=== PATIENT | male | born 1955 | race Caucasian/White ===

== ENCOUNTER 2020-11-10 08:07 | Day surgery (SDC) | payer OTHER, SELFPAY ==
[2020-11-10] VITALS (10 sets, daily range): BP systolic 125–148; BP diastolic 69–89; PULSE 53–69; RESP 10–17; TEMP 36.6–37.1; O2SAT 97–99; BMI 20.9
--- NOTE | 2020-11-10 08:43 | PM.HP.1 ---
History of Present Illness History of Present Illness Date Patient Seen: 11/10/20 Time Patient Seen: 08:43 Chief complaint: SDC Narrative: The patient is a gentleman here for a repair of bilateral inguinal hernias. Tease locally symptomatic. He also has an umbilical hernia that he does not want repaired. Patient History Medical History Depression HTN (hypertension) Surgical History (Updated 11/10/20 @ 08:44 by Rustam Hernandez MD) Hx of knee surgery Hx of shoulder surgery Hx of vasectomy Family & Social History Family History Father Heart disease Brother Heart disease Social History: household members spouse Tobacco & Substance use: Smoking Status Never smoker alcohol intake current Meds Home Medications and Allergies Home Medications Medication Instructions Recorded Confirmed Type bupropion HCl 100 mg tablet,12 hr 100 mg PO DAILY 04/14/20 09/22/20 History sustained-release cyclobenzaprine 5 mg tablet 10 mg PO BEDTIME PRN 04/14/20 09/22/20 History hydrocodone 10 mg-acetaminophen 1 tab PO BEDTIME PRN 04/14/20 09/22/20 History 325 mg tablet hydroxyzine HCl 10 mg tablet 10 mg PO BEDTIME PRN 04/14/20 09/22/20 History lisinopril 2.5 mg tablet 2.5 mg PO DAILY 04/14/20 09/22/20 History saw palmetto 160 mg capsule 320 mg PO DAILY 04/14/20 09/22/20 History sildenafil 25 mg tablet 25 mg PO DAILY PRN 04/14/20 09/22/20 History Allergies Allergy/AdvReac Type Severity Reaction Status Date / Time No Known Drug Allergies Allergy Unverified 09/22/20 15:36 Review of Systems Review of Systems ROS: Yes All systems reviewed with the patient and are negative except as otherwise documented Exam Narrative Exam Narrative: Pleasant cooperative patient no apparent distress. Lungs are clear to auscultation. No rales or rhonchi. Heart regular rate and rhythm no murmur gallop. Abdomen is soft nontender without mass. Bilateral reducible inguinal hernias. No rashes over his skin in the region. Reducible umbilical hernia. Patient is alert and oriented x3. Assessment & Plan Assessment & Plan narrative: Patient with bilateral inguinal hernias for repair. I have discussed the procedure with him. Limitations after the operation. Risks of bleeding, infection, recurrence, injury to blood supply to was testicle and nerves which could cause chronic pain or numbness. He appears to understand wishes to proceed. He has had a vasectomy.
--- NOTE | 2020-11-10 08:46 | PM.PREOP ---
Pre-operative Note COVID-19 COVID-19 status: Negative Result date/Date tested (Pos, Neg/Pending): 11/08/20 Interval Note History & Physical reviewed/Exam performed by Physician: Yes Changes to H&P: No
[2020-11-10] MEDS: LACTATED RINGERS 1,000 ML 100 ML IV ×2 (08:47→10:45)
[2020-11-10] MEDS: CEFAZOLIN 2 GM/100 ML FROZ.PIGGY IV (09:15)
--- NOTE | 2020-11-10 09:37 | SUR.OPER ---
Supine on padded OR bed, head on pillow, arms secured on padded arm boards at <90 degrees abduction, legs uncrossed, safety belt at thigh, tape over blanket over lower legs.
[2020-11-10] MEDS: BUPIVACAINE 0.5% (PF) VIAL 30 ML INJ (09:46)
--- NOTE | 2020-11-10 11:19 | P.OP_ITS ---
Operative Date/Time/Diagnoses Date of procedure: 11/10/20 Time of procedure: 11:19 Pre-op diagnosis: Bilateral inguinal hernia. Post-op diagnosis: same (Bilateral direct inguinal hernia with bilateral lipoma of the cord) Procedure & Clinicians Procedure: Repair with modified Shouldice technique bilateral Same procedure as scheduled: Yes Indications: Symptomatic hernias. Patient preferred not to have mesh used. Surgeon: Rustam Hernandez Click Yes if Unassisted: Yes Anesthesia Type: General Operative Notes Findings: Direct hernias bilateral. Lipoma of the cord bilateral. Closure Type: primary Specimen(s): none sent Prosthetic devices, grafts, tissues, transplants, or devices: None Estimated Blood Loss (mL): 5 Procedure in detail: Patient is placed supine on the operating room table underwent general LMA anesthesia. He was prepped and draped in the usual fashion. Beginning on the left side a transverse incision was made overlying the internal ring. It was carried down level the external oblique. The external oblique was opened parallel with its fibers through the external ring. Cord structures were elevated. Cremaster was opened proximally and a lipoma of the cord was identified. It was from surrounding structures and dissected to the level the deep epigastric vessels where it was suture ligated with 2-0 silk suture. Distal portion was removed. There was no indirect sac identified. The floor was examined and found to be we can. It was opened from near the internal ring to the near the pubic tubercle. Using 2 0 Prolene sutured and anchored at the pubic tubercle the suture was run on the underside of the medial floor to the cut edge of the lateral floor including the very edge of the inguinal ligament. This was run back to reform a new internal ring was snug but not tight. This same suture was then run from the cut edge of the medial floor to the tissues just above the inguinal ligament on the lateral aspect of the area worked upon. This was run back to the pubic tubercle where the suture was tied. A 2nd running layer was formed beginning at the internal ring and running the tissues of the internal oblique to the inguinal ligament down to the pubic tubercle and back suturing the tissues just above that layer. It was tied at the internal ring. The newly formed internal ring was snug but not tight. The cremaster was closed with an interrupted 3-0 Vicryl. The electrotyper helper al oblique was closed with a 3-0 Vicryl running suture. The subQ was closed with interrupted 3-0 Vicryl and the skin closed with a running 4-0 Vicryl subcuticular stitch. Attention was turned to the opposite side. There was a nearly identical operation performed on the right. Findings were the same as on the left. The only difference in the repair was that I did not feel it was necessary to do these 3rd and 4th running suture line that is from the internal ring to the pubic tubercle and back. The repair appeared to be adequate without it. Closure was in an identical fashion as the opposite side.. Local anesthetic was infiltrated bilaterally prior to flying Mastisol and Steri- Strips. Complications: none Post-operative Condition: stable Disposition: PACU
[2020-11-10] MEDS: fentaNYL 100 MCG/2 ML INJ IV ×2 (11:25→11:37)
[2020-11-10] MEDS: OXYCODONE/ACETAMINOPHEN 5/325 TABLET 1 TAB PO ×2 (11:29→12:00)
[2020-11-10] MEDS: KETOROLAC 30 MG/ML VIAL IV (11:53)
--- NOTE | 2020-11-10 12:31 | SUR.PHASEII ---
Assumed care from VICKIE Rogers. Bed low, locked and call martinez in hand.
--- NOTE | 2020-11-10 13:13 | SUR.PHASEII ---
Pt ready to go, called, pt assisted to BR to void, up with SBA, steady. Voided in BR. Pt left when ready and left in stable condition, dressings to both groins c/d/i.
== END 2020-11-10 13:00 | disposition home or self-care (01) ==
PROVIDERS: Referring Provider Specialist; Visit Provider Specialist
PROC: (CPT 49505; principal; 2020-11-10 09:15)
DX: K40.20 Bilateral inguinal hernia, without obstruction or gangrene, not specified as recurrent (principal); I10 Essential (primary) hypertension; F32.9 Major depressive disorder, single episode, unspecified; D17.6 Benign lipomatous neoplasm of spermatic cord
CPT/HCPCS: 49505; J0690; J1100; J1885; J2405; J2704; J3010

== ENCOUNTER → 2022-09-27 07:55 | Outpatient (CLI) | payer MEDICARE, OTHER, SELFPAY ==
--- NOTE | 2022-09-28 13:27 | DI.NM.S_ITS ---
DATE OF SERVICE: 09/27/2022 PROCEDURE: Exercise stress test INDICATIONS: Exertional shortness of breath. CARDIAC STRESS: Patient underwent exercise stress test under the supervision of an attending staff. He walked on Rei protocol for 9 minutes and 09 seconds, achieved maximum heart rate of 142, which was 92 percent of target heart rate. Resting blood pressure 118/80 mmHg. Peak blood pressure 160/88 mmHg. Achieved 10.1 METs of workload. BEL -18 percent. Baseline rhythm was sinus. During stress, patient has artifacts. However, in immediate recovery, no convincing ischemic changes seen. No significant arrhythmias. The patient felt fatigue. No chest pain or other cardiac symptoms. CONCLUSION: Exercise stress test is negative for inducible ischemia. Normal hemodynamic response. Good exercise tolerance. Functional aerobic impairment - 18 percent. No significant arrhythmias seen. No anginal symptoms. Overall low- risk study. TyreeDwightRen - REINALDO/edmund/JOSE ARMANDO doc#: [id number]/job#: [id number] dd: 09/27/2022 17:34:00 dt: 09/27/2022 18:00:00 DICTATING /COPIES TO: Lakisha Garcia MD COPIES MNE: DARSHAN;
== END ==
PROVIDERS: Referring Provider Family Medicine; Visit Provider Family Medicine
DX: R06.09 Other forms of dyspnea (principal); R06.02 Shortness of breath; R53.83 Other fatigue
CPT/HCPCS: 93017

== ENCOUNTER 2025-05-07 05:41 | Emergency (ER) | payer MEDICARE, OTHER, SELFPAY ==
[2025-05-07] VITALS (16 sets, daily range): BP systolic 132–171; BP diastolic 72–86; PULSE 53–86; RESP 15–17; TEMP 36.8; O2SAT 97–99; BMI 20.9
--- NOTE | 2025-05-07 06:20 | ED.BACK ---
HPI - Back Pain/Injury <Maria L Moeller DO - Last Filed: 05/10/25 06:58> General Chief Complaint: Back Pain/Injury Stated Complaint: Back pain Time Seen by Provider: 05/07/25 06:12 Source: patient History of Present Illness HPI Narrative: Patient is a 69-year-old male history of depression and hypertension presenting today with epigastric pain and back pain. He reports he is currently camping but sleeping on a nice comfortable blow mattress. Woke up at 2:00 a.m. with kind of some thoracic back pain and epigastric pain he says it was a little different than his normal back pain. He rolled over went back to sleep and it happened again at 4:00 a.m.. He was quite worried because multiple family members have had heart attacks. He does not have any known coronary artery disease. He denies any chest pain or shortness of breath. No significant nausea. He is having some dry mouth now. Pain in his back is not really reproducible. He appears comfortable Related Data Home Medications ?Medication ?Instructions ?Recorded ?Confirmed bupropion HCl 100 mg tablet,12 hr 100 mg PO DAILY 04/14/20 05/07/25 sustained-release (Wellbutrin SR) cyclobenzaprine 5 mg tablet 10 mg PO BEDTIME PRN Muscle Spasm 04/14/20 05/07/25 hydroxyzine HCl 10 mg tablet 10 mg PO BEDTIME PRN Pain (Scale 04/14/20 05/07/25 Score 1-3) lisinopril 2.5 mg tablet 2.5 mg PO DAILY 04/14/20 05/07/25 hydrocodone 10 mg-acetaminophen 1 tab PO Q6H PRN pain 05/07/25 05/07/25 325 mg tablet Previous Rx's ?Medication ?Instructions ?Recorded oxycodone 5 mg tablet See Rx Instructions .Route 11/10/20 .COMPLEX PRN pain #20 tabs Allergies Allergy/AdvReac Type Severity Reaction Status Date / Time No Known Drug Allergies Allergy Unverified 05/07/25 05:46 Patient History <Maria L Moeller DO - Last Filed: 05/10/25 06:58> Medical History Depression HTN (hypertension) Surgical History Hx of knee surgery Hx of shoulder surgery Hx of vasectomy Family History Father Heart disease Brother Heart disease Social History marital status: household members: spouse occupational status: employed Smoking Status: Former smoker alcohol intake: current substance use type: does not use Smoking Status: Former smoker alcohol intake frequency: a few times a month Alcohol type: beer and wine Exam <Maria L Moeller DO - Last Filed: 05/10/25 06:58> Initial Vital Signs Initial Vital Signs: Vital Signs Temperature 98.3 F 05/07/25 05:48 Pulse Rate 70 05/07/25 05:48 Respiratory Rate 16 05/07/25 05:48 Blood Pressure 159/83 H 05/07/25 05:48 Pulse Oximetry 97 05/07/25 05:48 Oxygen Delivery Method Room Air 05/07/25 05:48 GENERAL: Well-appearing, well-nourished and in no acute distress. HEENT: Head atraumatic,EOMI, pupils reactive, face symmetric, moist mucous membranes CARDIOVASCULAR: Regular rate and rhythm without murmurs, rubs or gallops. RESPIRATORY: Breath sounds equal bilaterally, no wheezes rales or rhonchi. ABDOMEN: Soft, nontender. Normoactive bowel sounds all 4 quadrants. No guarding or rebound. BACK: No vertebral tenderness no step-offs EXTREMITIES: Normal range of motion, no clubbing or edema. Neurovascularly intact NEUROLOGICAL: Alert and oriented x4.Normal gait and speech. Cranial nerves II through XII grossly intact. SKIN: Warm, dry, no laceration, no petechiae, no rashes or lesions. <Kevin Goncalves MD - Last Filed: 05/08/25 07:01> Initial Vital Signs Initial Vital Signs: Vital Signs Temperature 98.3 F 05/07/25 05:48 Pulse Rate 70 05/07/25 05:48 Respiratory Rate 16 05/07/25 05:48 Blood Pressure 159/83 H 05/07/25 05:48 Pulse Oximetry 97 05/07/25 05:48 Oxygen Delivery Method Room Air 05/07/25 05:48 Course <Maria L Moeller DO - Last Filed: 05/10/25 06:58> Orders Ordered: Discontinued Medications Acetaminophen (Acetaminophen 325 Mg Tablet) 650 mg PO NOW ONE Stop: 05/07/25 11:52 Last Admin: 05/07/25 11:58 Dose: 650 mg Documented By: ALEXANDR Aspirin (Aspirin 81 Mg Chew Tab) 324 mg PO NOW ONE Stop: 05/07/25 06:31 Last Admin: 05/07/25 06:43 Dose: 324 mg Documented By: JUNE Sodium Chloride (Normal Saline 0.9%) 500 mls @ 1,000 mls/hr IV BOLUS ONE Stop: 05/07/25 08:24 Last Infusion: 05/07/25 10:24 Dose: Infused Documented By: Admin: 05/07/25 07:59 Dose: 1,000 mls/hr Documented By: NETTA Vital Signs Vital signs: Vital Signs - 8 hr 05/07/25 05:48 05/07/25 06:58 05/07/25 06:59 Temperature 98.3 F Pulse Rate 70 58 L 57 L Respiratory Rate 16 16 Blood Pressure 159/83 H 171/84 H Pulse Oximetry 97 99 98 Oxygen Delivery Method Room Air Room Air 05/07/25 07:00 05/07/25 07:00 05/07/25 07:30 Temperature Pulse Rate 58 L Respiratory Rate Blood Pressure 161/79 H 132/74 Pulse Oximetry 99 Oxygen Delivery Method 05/07/25 07:30 05/07/25 08:00 05/07/25 08:30 Temperature Pulse Rate 53 L 68 74 Respiratory Rate Blood Pressure Pulse Oximetry 98 98 98 Oxygen Delivery Method 05/07/25 09:00 05/07/25 09:18 05/07/25 09:30 Temperature Pulse Rate 75 65 59 L Respiratory Rate 17 Blood Pressure Pulse Oximetry 98 97 97 Oxygen Delivery Method 05/07/25 10:00 05/07/25 10:21 05/07/25 10:21 Temperature Pulse Rate 74 76 Respiratory Rate Blood Pressure 155/86 H Pulse Oximetry 99 Oxygen Delivery Method 05/07/25 10:30 05/07/25 11:00 05/07/25 11:30 Temperature Pulse Rate 68 71 86 Respiratory Rate Blood Pressure 165/84 H Pulse Oximetry 98 97 97 Oxygen Delivery Method <Kevin Goncalves MD - Last Filed: 05/08/25 07:01> Orders Ordered: Discontinued Medications Acetaminophen (Acetaminophen 325 Mg Tablet) 650 mg PO NOW ONE Stop: 05/07/25 11:52 Last Admin: 05/07/25 11:58 Dose: 650 mg Documented By: ALEXANDR Aspirin (Aspirin 81 Mg Chew Tab) 324 mg PO NOW ONE Stop: 05/07/25 06:31 Last Admin: 05/07/25 06:43 Dose: 324 mg Documented By: JUNE Sodium Chloride (Normal Saline 0.9%) 500 mls @ 1,000 mls/hr IV BOLUS ONE Stop: 05/07/25 08:24 Last Infusion: 05/07/25 10:24 Dose: Infused Documented By: Admin: 05/07/25 07:59 Dose: 1,000 mls/hr Documented By: NETTA Vital Signs Vital signs: Vital Signs - 8 hr 05/07/25 05:48 05/07/25 06:58 05/07/25 06:59 Temperature 98.3 F Pulse Rate 70 58 L 57 L Respiratory Rate 16 16 Blood Pressure 159/83 H 171/84 H Pulse Oximetry 97 99 98 Oxygen Delivery Method Room Air Room Air 05/07/25 07:00 05/07/25 07:00 05/07/25 07:30 Temperature Pulse Rate 58 L Respiratory Rate Blood Pressure 161/79 H 132/74 Pulse Oximetry 99 Oxygen Delivery Method 05/07/25 07:30 05/07/25 08:00 05/07/25 08:30 Temperature Pulse Rate 53 L 68 74 Respiratory Rate Blood Pressure Pulse Oximetry 98 98 98 Oxygen Delivery Method 05/07/25 09:00 05/07/25 09:18 05/07/25 09:30 Temperature Pulse Rate 75 65 59 L Respiratory Rate 17 Blood Pressure Pulse Oximetry 98 97 97 Oxygen Delivery Method 05/07/25 10:00 05/07/25 10:21 05/07/25 10:21 Temperature Pulse Rate 74 76 Respiratory Rate Blood Pressure 155/86 H Pulse Oximetry 99 Oxygen Delivery Method 05/07/25 10:30 05/07/25 11:00 05/07/25 11:30 Temperature Pulse Rate 68 71 86 Respiratory Rate Blood Pressure 165/84 H Pulse Oximetry 98 97 97 Oxygen Delivery Method MDM - Back Pain/Injury <Maria L Moeller, - Last Filed: 05/10/25 06:58> Lab Data 05/07/25 06:41 05/07/25 06:41 Labs: Lab Results 05/07/25 05/07/25 Range/Units 06:41 11:40 WBC 5.8 (4.5-11.0) X10^3/uL RBC 4.68 (4.5-5.9) X10^6/uL Hgb 13.5 (13.5-17.5) g/dL Hct 39.7 L (41-53) % MCV 84.9 (80-100) fL MCH 28.9 (26-34) PG MCHC 34.0 (30-36) % RDW 13.0 (11.6-14.8) % Plt Count 166 (150-400) X10^3/uL Neut % (Auto) 57.5 (50-75) % Lymph % (Auto) 24.0 L (25-40) % [place] % (Auto) 10.5 (3-14) % Eos % (Auto) 7.7 H (2-4) % Baso % (Auto) 0.3 (0-2) % Neut # (Auto) 3300 (6259-4166) /uL Lymph # (Auto) 1400 (1118-1224) /uL [place] # (Auto) 600 (0-900) /uL Eos # (Auto) 400 (0-450) /uL Baso # (Auto) 0 (0-100) /uL Sodium 138 (137-145) mmol/L Potassium 4.0 (3.4-5.1) mmol/L Chloride 104 (98-107) mmol/L Carbon Dioxide 26 (22-32) mmol/L BUN 13 (9-20) mg/dL Creatinine 0.76 (0.66-1.25) mg/dL Estimated GFR > 60 (>60) mL/min BUN/Creatinine Ratio 17.1 (6-22) Glucose 107 H (70-99) mg/dL Calcium 9.1 (8.4-10.2) mg/dL Total Bilirubin 0.4 (0.2-1.3) mg/dL AST 31 (17-59) IU/L ALT 23 (<50) IU/L Alkaline Phosphatase 35 L (38-126) U/L Total Creatine Kinase 88 77 (55-170) U/L Troponin I < 0.012 < 0.012 (0.01-0.034) ng/mL Total Protein 7.8 (6.3-8.2) g/dL Albumin 4.8 (3.5-5.0) g/dL Globulin 3.0 (1.7-4.1) g/dL Albumin/Globulin Ratio 1.6 (1.0-2.8) Lipase 28 (23-300) U/L Urine Dip Bedside Urine Glucose Negative Bedside Urine Bilirubin - Negative Bedside Urine Ketone - Negative Urine Specific [place] 1.010 Bedside Urine Occult Blood - Negative Bedside Urine pH 6 Bedside Urine Protein - Negative Bedside Urine Urobilinogen - Negative Bedside Urine Nitrite - Negative Bedside Urine Leukocytes - Negative Esterase ECG Data Attestation: I personally reviewed and interpreted this ECG as follows: Prior ECG tracings: not available for review Interpretation: Normal sinus rhythm rate 59 NV interval 170 QRS 92 QTC 3 97 T-wave inversion noted in lead 2 MDM Narrative Medical decision making narrative: [facility] CC: Back pain Complicating co-morbidities: Hypertension depression Data collected from: [ ] Medical records reviewed: [ ] Differential considered: Acute coronary syndrome, dissection, musculoskeletal pain Exam documented above, pertinent findings include: Alert well-appearing 61-year-old male mild epigastric pain no reproducible back pain Lab Test results independently reviewed as above. Pertinent findings: CBC no leukocytosis no anemia CMP and troponin pending Independently reviewed EKG as above Sinus rhythm Imaging studies independently reviewed: Consultations: [ ] Treatments: [ ] Re-evaluations: [ ] Discussion: Patient is 69-year-old male presenting today with some epigastric and back pain. He was camping but reports it was a blowup mattress not his normal back pain and he typically does not have any kind epigastric pain. Multiple family members have had prior MIs but he has no known coronary disease. He is chest pain-free now appears comfortable. Blood work still pending EKGs does not show STEMI. Signed out toDr. Goncalves <Kevin Goncalves MD - Last Filed: 05/08/25 07:01> Medical Records Medical records narrative: [address] [address] Nuclear Medicine Report Signed Patient: Ren Clements MR#: [id number] : 1955 Acct:[id number] Age/Sex: 67 / M Date of Service: 09/27/22 Loc: [facility] Accession Number: [id number] Procedure: Exercise treadmill NON NUC Ordering Provider: Reese Rahman D.O. DATE OF SERVICE: 09/27/2022 PROCEDURE: Exercise stress test INDICATIONS: Exertional shortness of breath. CARDIAC STRESS: Patient underwent exercise stress test under the supervision of an attending staff. He walked on Rei protocol for 9 minutes and 09 seconds, achieved maximum heart rate of 142, which was 92 percent of target heart rate. Resting blood pressure 118/80 mmHg. Peak blood pressure 160/88 mmHg. Achieved 10.1 METs of workload. BEL -18 percent. Baseline rhythm was sinus. During stress, patient has artifacts. However, in immediate recovery, no convincing ischemic changes seen. No significant arrhythmias. The patient felt fatigue. No chest pain or other cardiac symptoms. CONCLUSION: Exercise stress test is negative for inducible ischemia. Normal hemodynamic response. Good exercise tolerance. Functional aerobic impairment - 18 percent. No significant arrhythmias seen. No anginal symptoms. Overall low- risk study. Ren Clements - [employer]/edmund/JOSE ARMANDO doc#: [id number]/job#: [id number] dd: 09/27/2022 17:34:00 dt: 09/27/2022 18:00:00 DICTATING MD/COPIES TO: Lakisha Garcia MD COPIES MNE: DARSHAN; Lab Data Labs: Lab Results 05/07/25 05/07/25 Range/Units 06:41 11:40 WBC 5.8 (4.5-11.0) X10^3/uL RBC 4.68 (4.5-5.9) X10^6/uL Hgb 13.5 (13.5-17.5) g/dL Hct 39.7 L (41-53) % MCV 84.9 (80-100) fL MCH 28.9 (26-34) PG MCHC 34.0 (30-36) % RDW 13.0 (11.6-14.8) % Plt Count 166 (150-400) X10^3/uL Neut % (Auto) 57.5 (50-75) % Lymph % (Auto) 24.0 L (25-40) % [place] % (Auto) 10.5 (3-14) % Eos % (Auto) 7.7 H (2-4) % Baso % (Auto) 0.3 (0-2) % Neut # (Auto) 3300 (8984-4459) /uL Lymph # (Auto) 1400 (2055-3708) /uL [place] # (Auto) 600 (0-900) /uL Eos # (Auto) 400 (0-450) /uL Baso # (Auto) 0 (0-100) /uL Sodium 138 (137-145) mmol/L Potassium 4.0 (3.4-5.1) mmol/L Chloride 104 (98-107) mmol/L Carbon Dioxide 26 (22-32) mmol/L BUN 13 (9-20) mg/dL Creatinine 0.76 (0.66-1.25) mg/dL Estimated GFR > 60 (>60) mL/min BUN/Creatinine Ratio 17.1 (6-22) Glucose 107 H (70-99) mg/dL Calcium 9.1 (8.4-10.2) mg/dL Total Bilirubin 0.4 (0.2-1.3) mg/dL AST 31 (17-59) IU/L ALT 23 (<50) IU/L Alkaline Phosphatase 35 L (38-126) U/L Total Creatine Kinase 88 77 (55-170) U/L Troponin I < 0.012 < 0.012 (0.01-0.034) ng/mL Total Protein 7.8 (6.3-8.2) g/dL Albumin 4.8 (3.5-5.0) g/dL Globulin 3.0 (1.7-4.1) g/dL Albumin/Globulin Ratio 1.6 (1.0-2.8) Lipase 28 (23-300) U/L Urine Dip Bedside Urine Glucose Negative Bedside Urine Bilirubin - Negative Bedside Urine Ketone - Negative Urine Specific [place] 1.010 Bedside Urine Occult Blood - Negative Bedside Urine pH 6 Bedside Urine Protein - Negative Bedside Urine Urobilinogen - Negative Bedside Urine Nitrite - Negative Bedside Urine Leukocytes - Negative Esterase Imaging Data Chest x-ray: Radiologist's Impression: [address] [address] XRay Report Signed Patient: Ren Clements MR#: [id number] : 1955 Acct:[id number] Age/Sex: 69 / M Date of Service: 05/07/25 Loc: ED Accession Number: [id number] Procedure: XR chest 1V Ordering Provider: Maria L Moeller D.O. PROCEDURE: XR CHEST 1V INDICATIONS: chest pain TECHNIQUE: One view of the chest was acquired. COMPARISON: None. FINDINGS: Surgical changes and devices: None. Lungs and pleura: Lungs are clear. No pleural effusions or pneumothorax. Mediastinum: Mediastinal contours appear normal. Heart size is normal. Bones and chest wall: No suspicious bony lesions. Overlying soft tissues appear unremarkable. IMPRESSION: No acute cardiopulmonary abnormality is seen. Dictated by: Jose Hernandez M.D. on 05/07/2025 at 9:19 Approved by: Jose Hernandez M.D. on 05/07/2025 at 9:20 CT angio chest abdomen and pelvis: Radiologist's Impression: [place] [address] CT Scan Report Signed Patient: Ren Clements MR#: [id number] : 1955 Acct:[id number] Age/Sex: 69 / M Date of Service: 05/07/25 Loc: ED Accession Number: [id number] Procedure: CT angio chest abdomen pelvis Ordering Provider: Kevin Goncalves MD PROCEDURE: CT ANGIO CHEST ABDOMEN PELVIS INDICATIONS: Chest pain back pain/rule out dissection TECHNIQUE: Precontrast 5 mm thick sections acquired from the lung apices to the iliac crests. After the administration of intravenous contrast, 2.5 mm thick sections again acquired from the lung apices to the iliac crests. Maximum intensity projection (MIP) oblique sagittal and coronal reformats were then acquired. For radiation dose reduction, the following was used: automated exposure control. COMPARISON: None. FINDINGS: Image quality: Diagnostic. AORTA: Thoracic aorta is normal caliber. At the level of the ROLY there is mild aneurysmal dilatation of the infrarenal abdominal aorta, measuring 3.0 x 3.2 cm. No acute aortic syndrome. Pulmonary tree: Normal caliber vessels. No acute pulmonary emboli. CHEST: Lower Neck: No enlarged lymph nodes. Thyroid: No thyroid nodules which require sonographic evaluation. Axillae: No enlarged lymph nodes. Chest Wall: Unremarkable. Lungs and Pleura: No pneumothorax or pleural effusions. No consolidation or suspicious nodules. Heart: Heart size is normal. Severe coronary artery calcifications. No pericardial effusion. Thoracic Vessels: Pulmonary arteries demonstrate normal size. Mediastinum and Rebeca: No enlarged lymph nodes. Esophagus: No wall thickening. No hiatal hernia. ABDOMEN: Liver: No solid mass. Gallbladder: Possibly very contracted or absent. Biliary ducts: No biliary dilation. Pancreas: No ductal dilation. Spleen: Size is within normal limits. Adrenal Glands: No adrenal nodules. Kidneys and Ureters: No hydronephrosis. No solid mass. No complex renal cystic lesion which requires follow up. Stomach and Bowel: Normal colonic caliber, without significant wall thickening. Large fecal load. Mild diverticulosis. Normal appendix. Peritoneum: No abnormal intraperitoneal fluid. No free air. Ventral Wall: No hernia. Abdominal Nodes: No retroperitoneal or mesenteric adenopathy by size criteria. Vessels: Inferior vena cava is normal in size. PELVIS: Pelvic Organs: Posterior prostate implant seeds.. Bladder: Unremarkable. Pelvic Nodes: No enlarged lymph nodes. Miscellaneous: No inguinal hernias are seen. Bones: Diffuse lumbar degenerative change. IMPRESSION: 1. No acute aortic syndrome. 2. Very mild aneurysmal dilatation of the infrarenal abdominal aorta. 3. No acute process in the chest, abdomen, and pelvis. 4. Severe coronary artery calcifications. Dictated by: Bentley Easton M.D. on 05/07/2025 at 9:08 Approved by: Bentley Easton M.D. on 05/07/2025 at 9:18 MDM Narrative Medical decision making narrative: MDM CC: Back pain Complicating co-morbidities: Hypertension depression Data collected from: Patient Medical records reviewed: Exercise stress test September 27, 2022 at this hospital Differential considered: Acute coronary syndrome, dissection, musculoskeletal pain Exam documented above, pertinent findings include: Alert well-appearing 61-year-old male mild epigastric pain no reproducible back pain Lab Test results independently reviewed as above. Pertinent findings: Troponin less than 0.012 x2 CBC no leukocytosis no anemia Independently reviewed EKG as above Sinus rhythm Imaging studies independently reviewed: Chest x-ray no acute finding, CT angio chest abdomen pelvis coronary artery calcifications otherwise no acute finding Consultations: 9:[address] Bey, hospitalist, who will admit patient, last stress test was exercise stress test, will need nuclear stress test. Re-evaluations: 10:00 a.m.. Updated patient results and he does agree for admission for stress test and observation 1:50 p.m.. Patient does understand need for transfer as we do not have stress test capability until next week. He does agree to go to [facility]. 10:[address] Bey called back. We do not have stress test capability until next week. We will need to transfer. 11:23 a.m.. I spoke with [facility], she will accept patient Discussion: Patient is 69-year-old male presenting today with some epigastric and back pain. He was camping but reports it was a blowup mattress not his normal back pain and he typically does not have any kind epigastric pain. Multiple family members have had prior MIs but he has no known coronary disease. He is chest pain-free now appears comfortable. Blood work still pending EKGs does not show STEMI. Signed out toDr. Goncalves May 07, 2025 at 7:00 a.m..: Sacha: ?sign out from Dr Moeller patient here for epigastric and back pain. No chest pain. Laboratory studies and x-ray imaging are pending. X-ray so far looks reassuring. Laboratory studies reassuring at this time 7:55 a.m.. Spoke with patient results so far. He denies any pain at this time. There is strong family history of coronary disease with early deaths. He states last stress test was done here but unsure what year. According to records September 27, 2022 had exercise stress test which was reassuring. Discharge Plan Departure Patient Disposition: [facility] Clinical Impression: Atypical chest pain Prescriptions: No Action bupropion HCl [Wellbutrin SR] 100 mg tablet sustained-release 12 hr 100 mg PO DAILY cyclobenzaprine 5 mg tablet 10 mg PO BEDTIME PRN (Reason: Muscle Spasm) hydroxyzine HCl 10 mg tablet 10 mg PO BEDTIME PRN (Reason: Pain (Scale Score 1-3)) lisinopril 2.5 mg tablet 2.5 mg PO DAILY oxycodone 5 mg tablet See Rx Instructions .ROUTE .COMPLEX PRN (Reason: pain) Qty: 20 0RF Rx Instructions: Take 1 or 2 pills every 4-6 hours if needed for pain. May constipate. hydrocodone-acetaminophen 10-325 mg tablet 1 tab PO Q6H PRN (Reason: pain)
--- NOTE | 2025-05-07 06:30 | DI.RAD.S_ITS ---
PROCEDURE: XR CHEST 1V INDICATIONS: chest pain TECHNIQUE: One view of the chest was acquired. COMPARISON: None. FINDINGS: Surgical changes and devices: None. Lungs and pleura: Lungs are clear. No pleural effusions or pneumothorax. Mediastinum: Mediastinal contours appear normal. Heart size is normal. Bones and chest wall: No suspicious bony lesions. Overlying soft tissues appear unremarkable. IMPRESSION: No acute cardiopulmonary abnormality is seen. Dictated by: Jose Hernandez M.D. on 05/07/2025 at 9:19 Approved by: Jose Hernandez M.D. on 05/07/2025 at 9:20
--- NOTE | 2025-05-07 06:30 | EKG_ITS ---
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
[2025-05-07] MEDS: ASPIRIN 81 MG CHEW TAB 324 MG PO (06:43)
[2025-05-07 06:46] LABS: Add Manual Diff / Slide Review NO; Hematocrit 39.7 % (41-53); Hemoglobin 13.5 g/dL (13.5-17.5); Lymphocytes Absolute Auto 1400 /uL (1100-4500); Mean Corpuscular HGB Conc 34.0 % (30-36); Mean Corpuscular Hemoglobin 28.9 PG (26-34); Mean Corpuscular Volume 84.9 fL (80-100); Platelet Count 166 X10^3/uL (150-400)
[2025-05-07 06:58] LABS: Alanine Aminotransferase 23 IU/L (<50); Albumin 4.8 g/dL (3.5-5.0); Albumin Globulin Ratio 1.6 (1.0-2.8); Alkaline Phosphatase 35 U/L (38-126); Blood Urea Nitrogen 13 mg/dL (9-20); Calcium 9.1 mg/dL (8.4-10.2); Carbon Dioxide 26 mmol/L (22-32); Chloride 104 mmol/L (98-107); Creatine Kinase 88 U/L (55-170); Estimated Glomerular Filt Rate > 60 mL/min (>60); Globulin 3.0 g/dL (1.7-4.1); Glucose 107 mg/dL (70-99); HEMOLYSIS 15 (0-50); Lipase 28 U/L (23-300); Potassium 4.0 mmol/L (3.4-5.1); Sodium 138 mmol/L (137-145); Total Protein 7.8 g/dL (6.3-8.2)
[2025-05-07 07:10] LABS: Troponin I < 0.012 ng/mL (0.01-0.034)
--- NOTE | 2025-05-07 07:53 | DI.CT.S_ITS ---
PROCEDURE: CT ANGIO CHEST ABDOMEN PELVIS INDICATIONS: Chest pain back pain/rule out dissection TECHNIQUE: Precontrast 5 mm thick sections acquired from the lung apices to the iliac crests. After the administration of intravenous contrast, 2.5 mm thick sections again acquired from the lung apices to the iliac crests. Maximum intensity projection (MIP) oblique sagittal and coronal reformats were then acquired. For radiation dose reduction, the following was used: automated exposure control. COMPARISON: None. FINDINGS: Image quality: Diagnostic. AORTA: Thoracic aorta is normal caliber. At the level of the ROLY there is mild aneurysmal dilatation of the infrarenal abdominal aorta, measuring 3.0 x 3.2 cm. No acute aortic syndrome. Pulmonary tree: Normal caliber vessels. No acute pulmonary emboli. CHEST: Lower Neck: No enlarged lymph nodes. Thyroid: No thyroid nodules which require sonographic evaluation. Axillae: No enlarged lymph nodes. Chest Wall: Unremarkable. Lungs and Pleura: No pneumothorax or pleural effusions. No consolidation or suspicious nodules. Heart: Heart size is normal. Severe coronary artery calcifications. No pericardial effusion. Thoracic Vessels: Pulmonary arteries demonstrate normal size. Mediastinum and Rebeca: No enlarged lymph nodes. Esophagus: No wall thickening. No hiatal hernia. ABDOMEN: Liver: No solid mass. Gallbladder: Possibly very contracted or absent. Biliary ducts: No biliary dilation. Pancreas: No ductal dilation. Spleen: Size is within normal limits. Adrenal Glands: No adrenal nodules. Kidneys and Ureters: No hydronephrosis. No solid mass. No complex renal cystic lesion which requires follow up. Stomach and Bowel: Normal colonic caliber, without significant wall thickening. Large fecal load. Mild diverticulosis. Normal appendix. Peritoneum: No abnormal intraperitoneal fluid. No free air. Ventral Wall: No hernia. Abdominal Nodes: No retroperitoneal or mesenteric adenopathy by size criteria. Vessels: Inferior vena cava is normal in size. PELVIS: Pelvic Organs: Posterior prostate implant seeds.. Bladder: Unremarkable. Pelvic Nodes: No enlarged lymph nodes. Miscellaneous: No inguinal hernias are seen. Bones: Diffuse lumbar degenerative change. IMPRESSION: 1. No acute aortic syndrome. 2. Very mild aneurysmal dilatation of the infrarenal abdominal aorta. 3. No acute process in the chest, abdomen, and pelvis. 4. Severe coronary artery calcifications. Dictated by: Bentley Easton M.D. on 05/07/2025 at 9:08 Approved by: Bentley Easton M.D. on 05/07/2025 at 9:18
[2025-05-07] MEDS: SODIUM CHLORIDE 0.9% 500 ML 1000 ML IV (07:59)
[2025-05-07] MEDS: ACETAMINOPHEN 325 MG TABLET 650 MG PO (11:58)
[2025-05-07 12:10] LABS: Creatine Kinase 77 U/L (55-170)
[2025-05-07 12:23] LABS: Troponin I < 0.012 ng/mL (0.01-0.034)
--- NOTE | 2025-05-07 14:35 | PC.NURSE ---
Report given/care transferred to [facility] transport nurse Haile
== END 2025-05-07 14:48 | disposition short-term general hospital (02) ==
LOC: ED 08:56 → AC 10:49 → ED 11:23
PROVIDERS: Emergency Medicine; Emergency Provider Emergency Medicine; Referring Provider Emergency Medicine
DX: R07.89 Other chest pain (principal); M54.9 Dorsalgia, unspecified; Z82.49 Family history of ischemic heart disease and other diseases of the circulatory system
CPT/HCPCS: 36415; 71045; 71275; 74174; 80053; 81003; 82550; 83690; 84484; 85025; 93005; 93010; 96360; 96361; 99284; Q9967

== ENCOUNTER 2025-08-11 10:16 | Day surgery (SDC) | payer MEDICARE, OTHER, SELFPAY ==
[2025-08-03 08:16] VITALS: BMI 22.3
[2025-08-11] VITALS (7 sets, daily range): BP systolic 130–159; BP diastolic 51–82; PULSE 55–62; RESP 15–20; TEMP 36.3–36.6; O2SAT 94–98
[2025-08-11] MEDS: LACTATED RINGERS 1,000 ML 42 ML IV ×2 (11:40→16:17)
--- NOTE | 2025-08-11 13:14 | PM.PREOP ---
Pre-operative Note COVID-19 COVID-19 status: Not tested Interval Note History & Physical reviewed/Exam performed by Physician: Yes Changes to H&P: No ASA Class (for procedural sedation): II
--- NOTE | 2025-08-11 13:52 | SUR.OPER ---
Head supported on pillow, face protected with [face plate/foam per anesthesia preference]. Arms padded and tucked bilaterally. Safety strap across thighs, tape over blanket over lower legs, feet flat on padded foot board. Jenifer; positioning approved by provider
--- NOTE | 2025-08-11 15:06 | PM.OP.1 ---
Operative Date/Time/Diagnoses Date of procedure: 08/11/25 Time of procedure: 15:06 Pre-op diagnosis: Symptomatic cholelithiasis Post-op diagnosis: same Procedure & Clinicians Procedure: Robotic cholecystectomy Same procedure(s) as scheduled: Yes Surgeon: Leon Rain Assisted?: Yes Help Desk Support Specialist: Vincent Johnson Anesthesia Type: General Operative Notes Findings: . Applied: none Estimated Blood Loss (mL): 5 Procedure in detail: The patient was given preoperative antibiotics. The patient was brought to the operating room, placed on the table in the supine position. General endotracheal anesthesia was induced. Both arms were tucked. The abdomen was prepped and draped. A time-out was performed. A cut down was performed at the infraumbilical fold. The umbilical stalk was grasped with a Franco clamp to elevate the abdominal wall. The fascia was scored with cautery and the peritoneum was pierced with a Peon clamp. The 12 mm port was placed and the abdomen was insufflated to 15 mmHg. The endoscope was inserted. There was no evidence of any injury from the entry. Next, two 8 mm ports were placed in the left abdomen and one in the right abdomen under direct vision. The patient was then positioned in 15? of reverse Trendelenburg and the table was tilted slightly to the left. The robot was brought in from the patient's left side and docked. A fenestrated bipolar was placed through arm 1, the monopolar scissors through arm 3 and the ProGrasp through arm 4. The gallbladder was grasped at the dome with the ProGrasp and retracted cephalad. There were some adhesions to the serosa of the gallbladder which were carefully dissected with monopolar scissors to allow full retraction of the gallbladder. The cystic structures were dissected with hook cautery. A critical view was obtained. Hemoclips were placed on the cystic duct and artery and the cystic duct and artery were divided between the clips. The gallbladder was then dissected off the liver and placed in a specimen retrieval bag. A small amount of blood was suctioned out of the right upper quadrant.. The 8 mm ports were then removed under direct vision. Finally the 12 mm port was removed. Additional local was injected into the fascia of the 12 mm port site which was then closed with interrupted 0 Vicryl suture. The skin incisions were closed with 4 Monocryl and Steri-Strips were applied. Band-Aids were applied over the Steri-Strips. Specimen: Gallbladder and contents Vincent VELAZQUEZ provided assistance with exposure, retraction and closure of incisions. Complications: none Post-operative Condition: stable Disposition: PACU
[2025-08-11] MEDS: fentaNYL 100 MCG/2 ML INJ 50 MCG IV ×2 (15:10→15:18)
[2025-08-11] MEDS: hydrOXYzine 50 MG/ML INJ 25 MG IM (16:23)
[2025-08-11] MEDS: ONDANSETRON 4 MG/2 ML INJ IV (16:24)
== END 2025-08-11 16:30 | disposition home or self-care (01) ==
PROVIDERS: PCP Family Medicine; Referring Provider Surgery; Visit Provider Surgery
PROC: 0FT44ZZ Resection of Gallbladder, Percutaneous Endoscopic Approach (ICD-10-PCS; CPT 47562; principal; 2025-08-11 12:00)
DX: K80.20 Calculus of gallbladder without cholecystitis without obstruction (principal); Z87.891 Personal history of nicotine dependence
CPT/HCPCS: 47562; S2900; J0689; J1100; J1171; J2405; J2704; J3010; J3410; J7120